=== PATIENT | male | born 1975 | race Caucasian/White ===

== ENCOUNTER → 2017-07-20 | Outpatient (CLI) | payer OTHER ==
[~2017-07-20] MED LIST: ALEVE220 MG PO; AMOXICILLIN 50500 MG PO; NEURONTIN 300300 M1 PO; NORCO 5-325 TA1 EACH PO; OMEPRAZOLE 20 M20 MG PO; ULTRAM 50MG TAB50 MG PO; WELLBUTRIN 75 M75 M1
--- NOTE | 2017-08-05 07:40 | PAINCON ---
[address] [address] PAIN MANAGEMENT CONSULTATION Name: KATYA RUBALCAVA Room: [facility]#: [id number] Admission: 07/20/17 Attend Phys: Katya Marino DO Discharge: Date of : 73 Report #: [id number] THIS REPORT FOR: //name// CC: Edda Marino DATE OF SERVICE: 07/20/2017 CHIEF COMPLAINT: Low back pain, left lower extremity pain with paresthesias. HISTORY OF PRESENT ILLNESS: As you know, the patient is a very pleasant 41-year-old male who returns today in followup visit requesting to undergo next in the series of epidural injections under fluoroscopic guidance. The patient reports a 75% improvement in overall pain with previous epidural injection. His pain is now at a level 4/10. He is hopeful to see increase in efficacy with undergoing the next in a series of epidural injections. He is denying new injury, new trauma or any other changes in medical history that may have contributed to his ongoing symptoms. He returns today requesting this epidural injection in hopes of improving pain further. ALLERGIES: BUPROPION. CURRENT MEDICATIONS: Gabapentin, naproxen, omeprazole, tramadol. SOCIAL HISTORY: The patient smokes half pack of tobacco per day and has done so for 20+ years. Denies IV or illicit drug use. Admits to 3 alcoholic beverages per week. He is working in the [employer] [facility]. He is unaccompanied today. IMAGING: No new imaging available. PHYSICAL EXAMINATION: VITAL SIGNS: Blood pressure 130/81, pulse 78, respiratory rate 16, unlabored, the patient 99% on room air, current temperature 98.8 degrees Fahrenheit, height 5 feet 10 inches tall, weight 209 pounds, BMI calculated 30. GENERAL: Well-developed, well-nourished, well-hydrated 42-year-old male appearing his stated age. He is placing current pain score 4/10. HEENT: Normocephalic, atraumatic. Pupils are equal, round, reactive to light. EXTREMITIES: Show no clubbing, no cyanosis, no edema. MUSCULOSKELETAL: Lower extremity strength is symmetrical 5/5, muscle bulk and tone equal and symmetrical. Seated straight leg raising is negative. Supine straight leg raising positive on the left. Jorge L test negative. Modified Gaenslen's positive for axial low back pain. ASSESSMENT: 1. [place] [address] PAIN MANAGEMENT CONSULTATION Name: KHADARKATYA Maricarmen Room: [facility]#: [id number] Admission: 07/20/17 Attend Phys: Katya Marino DO Discharge: Date of : 73 Report #: [id number] 2. Displacement of lumbar intervertebral disk with radiculopathy. 3. Lumbosacral spondylosis with radiculopathy. 4. Lumbar degeneration. 5. Chronic intractable pain. PLAN: 1. The patient returns today in followup visit requesting to undergo next in the series of epidural injections under fluoroscopic guidance. The patient has received precertification to undergo this epidural injection in hopes of building on success of previous intervention. The patient reports about a 75% improvement in overall pain with previous injection. He now reports pain score 4/10, hopeful to see similar improvement with today's procedure. The patient has been advised of risks and benefits of this procedure, states understood and wished to proceed. 2. No medication changes were made at today's visit. The patient will continue current medical therapy as previously prescribed. 3. We will see the patient back in followup visit on an as needed basis for possible next in a series of epidural injections. PROCEDURE NOTE: DESCRIPTION OF PROCEDURE: L5-S1 left paramedian epidural steroid injection under fluoroscopic guidance. After obtaining written consent, the patient was taken back to fluoroscopy suite, placed in prone position with pillow under abdomen to decrease lumbar lordosis. Skin overlying lumbosacral area then prepped and draped in aseptic fashion. Lumbar intervertebral spaces identified by AP fluoroscopy. Skin and subcutaneous tissue overlying the target site of injection was anesthetized with 3 mL of 1% lidocaine. A 20-gauge 3-1/2 inch Tuohy needle advanced under fluoroscopic guidance towards the epidural space using left paramedian approach. Epidural space identified using loss of resistance to air technique. After negative aspiration for heme or cerebrospinal fluid, 1 mL of Omnipaque was injected. Lumbar epidurogram was confirmed using both AP and lateral fluoroscopy. After negative aspiration for heme or cerebrospinal fluid, 5 mL of a solution containing 2 mL 40 mg per mL, 80 mg total triamcinolone, 3 mL lidocaine 1% injected slowly. Needle retracted mcfp, needle tract flushed 3 mL 1% lidocaine. Needle then removed. Sterile bandage placed over injection site. No new motor deficits present in lower extremity following procedure. The patient tolerated procedure well, carefully [place] [address] PAIN MANAGEMENT CONSULTATION Name: KHADARKATYA Maricarmen Room: [facility]#: [id number] Admission: 07/20/17 Attend Phys: Katya Marino DO Discharge: Date of : 73 Report #: [id number] stable condition. No apparent complication. After meeting discharge criteria, the patient discharged home. <ELECTRONICALLY SIGNED> By: Katya Marino DO 08/05/17 0740 1211 [id number] Marino DO /nt
== END | disposition home or self-care (01) ==
LOC: M.PC 01:13
DX: M51.16 Intervertebral disc disorders with radiculopathy, lumbar region (principal); M47.27 Other spondylosis with radiculopathy, lumbosacral region; M51.36 Other intervertebral disc degeneration, lumbar region; G89.29 Other chronic pain; F17.210 Nicotine dependence, cigarettes, uncomplicated; Z79.899 Other long term (current) drug therapy; Z88.8 Allergy status to other drugs, medicaments and biological substances